=== PATIENT | female | born 1985 | race Caucasian/White ===

== ENCOUNTER → 2018-04-26 | Outpatient (CLI) | payer MEDICAID ==
[~2018-04-26] MED LIST: IBUP-1222 PO; OXYC1TAB7 PO; no home meds
== END | disposition home or self-care (01) ==
LOC: CFH 14:14
PROVIDERS: ATTEND Obstetrics & Gynecology Maternal & Fetal Medicine
DX: N63.10 Unspecified lump in the right breast, unspecified quadrant (principal); Z80.3 Family history of malignant neoplasm of breast
CPT/HCPCS: 77066

== ENCOUNTER 2018-07-05 09:31 | Emergency (ER) | payer MEDICAID ==
[~2018-07-05] VITALS: Ht 167.6 cm; Wt 65.9 kg
[2018-07-05 10:06] LABS: BASOPHILS # (AUTO) 0.05 x10^3/uL (0-0.1); BASOPHILS % (AUTO) 1 % (0-1); EOSINOPHILS # (AUTO) 0.02 x10^3/uL (0-0.4); EOSINOPHILS % (AUTO) 1 % (1-7); LYMPHOCYTES # (AUTO) 1.92 x10^3/uL (1-3.4); LYMPHOCYTES % (AUTO) 36 % (22-44); MD NO; MEAN CORPUSCULAR HEMOGLOBIN 30.4 pg (27.0-34.8); MEAN CORPUSCULAR HGB CONC 33.9 g/dL (32.4-35.8); MEAN CORPUSCULAR VOLUME 89.6 fL (80-100); MEAN PLATELET VOLUME 8.6 fL (7.4-10.4); MONOCYTES # (AUTO) 0.38 x10^3/uL (0.2-0.8); MONOCYTES % (AUTO) 7 % (2-9); NEUTROPHILS # (AUTO) 2.95 x10^3/uL (1.8-6.8); NEUTROPHILS % (AUTO) 55 % (42-75); PLATELET COUNT 257 x10^3/uL (130-400); RED BLOOD COUNT 4.38 x10^6/uL (3.82-5.3); RED CELL DISTRIBUTION WIDTH 13.9 % (9.6-15.2)
[2018-07-05 10:18] LABS: ALANINE AMINOTRANSFERASE 61 U/L (12-78); ALBUMIN 3.7 g/dL (3.4-5.0); ANION GAP 5 mmol/L (5-15); CALCIUM 8.7 mg/dL (8.5-10.1); CHLORIDE 110 mmol/L (98-107); CREATININE 0.75 mg/dL (0.55-1.02)
[2018-07-05 10:23] LABS: ALKALINE PHOSPHATASE 78 U/L (45-117); BILIRUBIN,TOTAL 0.4 mg/dL (0.2-1.0); TOTAL PROTEIN 7.6 g/dL (6.4-8.2)
--- NOTE | 2018-07-05 11:10 | NUR ---
PT OOB AMBULATE TO BATHROOM UPRIGHT STEADY GAIT. OB PAD WITH SMALL AMT OF RED DRAINAGE WITH BLOOD CLOT. PT RTD TO ROOM.
--- NOTE | 2018-07-05 11:11 | NUR ---
PT US WITH TECH TRANSPORT
--- NOTE | 2018-07-05 11:59 | NUR ---
PT RTD FROM . VSS
[2018-07-05 12:02] VITALS: BP 108/60
--- NOTE | 2018-07-05 13:11 | NUR ---
ira gay spoke with dr gonzalez
--- NOTE | 2018-07-05 13:39 | NUR ---
Patient/Caregiver given discharge instructions and they have confirmed that they understand the instructions. Patient ambulatory with steady gait.
== END 2018-07-05 13:40 | disposition home or self-care (01) ==
LOC: ED 10:49
DX: O20.0 Threatened abortion (principal)
CPT/HCPCS: 36415; 76815; 80053; 84702; 85025; 86901; 96372; 99284

== ENCOUNTER → 2018-08-10 | Outpatient (CLI) | payer MEDICAID ==
[~2018-08-10] MED LIST changes: +GADOBUTROL 7.5 MMOL/7.5 ML PFS ONE
== END | disposition home or self-care (01) ==
LOC: CFH 11:31
PROVIDERS: ATTEND Obstetrics & Gynecology Maternal & Fetal Medicine
DX: N63.10 Unspecified lump in the right breast, unspecified quadrant (principal); Z80.3 Family history of malignant neoplasm of breast
CPT/HCPCS: 77049; A9585

== ENCOUNTER 2018-08-24 12:06 | Outpatient (CLI) | payer MEDICAID ==
[~2018-08-24 12:06] MED LIST changes: -GADOBUTROL 7.5 MMOL/7.5 ML PFS ONE
[2018-08-24] MEDS ORDERED: Birth Control PO (13:29)
== END 2018-08-24 23:59 | disposition home or self-care (01) ==
LOC: STAR 12:06
PROVIDERS: ATTEND Obstetrics & Gynecology
DX: Z02.9 Encounter for administrative examinations, unspecified (principal)

== ENCOUNTER 2020-08-11 10:31 | Emergency (ER) | payer MEDICAID ==
[~2020-08-11] VITALS: Ht 167.6 cm; Wt 68.0 kg
[~2020-08-11 10:31] MED LIST changes: +Birth Control PO
--- NOTE | 2020-08-11 10:43 | NUR ---
engineering associate: EKG done in triage
--- NOTE | 2020-08-11 10:55 | NUR ---
PT BROUGHT BACK TO ROOM FROM TRIAGE. PT DIAGNOSED WITH UTI ON TUESDAY AND HAS STILL HAD DIFFUSE ABDOMINAL PAIN AND NAUSEA SINCE STARTING ABX. PT STATES SHE HAS NOT BEEN ABLE TO EAT OR DRINK WITHOUT WANTING TO VOMIT. PT DENIES AND FEVER OR DIARRHEA.
[2020-08-11 11:28] LABS: MICROSCOPIC AUTO
[2020-08-11 11:35] LABS: BASOPHILS % (AUTO) 1 % (0-1); EOSINOPHILS % (AUTO) 0 % (1-7); LYMPHOCYTES % (AUTO) 41 % (22-44); MD NO; MEAN CORPUSCULAR HEMOGLOBIN 29.7 pg (27.0-34.8); MEAN CORPUSCULAR HGB CONC 33.5 g/dL (32.4-35.8); MEAN PLATELET VOLUME 8.9 fL (7.4-10.4); MONOCYTES % (AUTO) 8 % (2-9); NEUTROPHILS % (AUTO) 50 % (42-75); PLATELET COUNT 258 x10^3/uL (130-400); RED BLOOD COUNT 4.39 x10^6/uL (3.82-5.3)
[2020-08-11 11:38] VITALS: BP 112/80
[2020-08-11 11:40] LABS: ALANINE AMINOTRANSFERASE 22 U/L (12-78); ALBUMIN 3.5 g/dL (3.4-5.0); ANION GAP 8 mmol/L (5-15); CALCIUM 8.6 mg/dL (8.5-10.1); CHLORIDE 105 mmol/L (98-107)
[2020-08-11 11:45] LABS: ALKALINE PHOSPHATASE 65 U/L (45-117); CREATININE 0.84 mg/dL (0.55-1.02); TOTAL PROTEIN 7.6 g/dL (6.4-8.2)
[2020-08-11 11:51] LABS: BILIRUBIN,TOTAL 0.3 mg/dL (0.2-1.0)
--- NOTE | 2020-08-11 12:04 | NUR ---
PT RESTING COMFORTABLY IN BED, CALL LIGHT WITHIN REACH
--- NOTE | 2020-08-11 12:42 | NUR ---
DISCHARGE INSTRUCTIONS REVIEWED WITH PT. ALL QUESTIONS ANSWERED AT THIS TIME.
== END 2020-08-11 12:47 | disposition home or self-care (01) ==
LOC: ED 12:38
DX: N39.0 Urinary tract infection, site not specified (principal); I45.9 Conduction disorder, unspecified; Z90.49 Acquired absence of other specified parts of digestive tract
CPT/HCPCS: 36415; 80053; 81001; 84703; 85025; 87086; 93005; 99284